=== PATIENT | male | born 1945 ===

== ENCOUNTER 2021-02-18 12:22 | Outpatient (CLI) | payer MEDICARE, OTHER, SELFPAY ==
--- NOTE | 2021-02-18 12:15 | RT.EKG_ITS ---
APPROVED REPORT Exam: Resting ECG Reason for Exam: afib Patient Location: O HR:111 bpm ECG Measurements Heart Rate 111 AXIS NJ [id number] P [id number] QRSd 123 QRS 29 QT 347 T 216 QTc 472 Conclusion Atrial fibrillation...? atrial activity Ventricular tachycardia, unsustained...sequence of 3 or more V complexes Left bundle branch block...QRSd>120, broad/notched R
== END 2021-02-18 12:23 | disposition home or self-care (01) ==
LOC: DI.CARD 12:23
PROVIDERS: Visit Provider Internal Medicine Cardiovascular Disease
DX: I42.9 Cardiomyopathy, unspecified (principal); I48.20 Chronic atrial fibrillation, unspecified
CPT/HCPCS: 93010

== ENCOUNTER → 2021-02-18 12:35 | Outpatient (BNVA) | payer MEDICARE, OTHER, SELFPAY | PROVIDERS: PCP Nurse Practitioner Family; Visit Provider Internal Medicine Cardiovascular Disease | DX: I42.9 Cardiomyopathy, unspecified (principal); I48.20 Chronic atrial fibrillation, unspecified | CPT/HCPCS: 99214 ==

== ENCOUNTER 2021-11-18 09:23 | Outpatient (CLI) | payer MEDICARE, OTHER, SELFPAY ==
--- NOTE | 2021-11-18 09:15 | RT.EKG_ITS ---
APPROVED REPORT Exam: Resting ECG Reason for Exam: afib Patient Location: O HR:79 bpm ECG Measurements Heart Rate 79 AXIS IA [id number] P [id number] QRSd 119 QRS 30 QT 359 T 209 QTc 412 Conclusion Atrial fibrillation...V-rate 86- 87, irreg A-activity Nonspecific intraventricular conduction delay...QRSd >115mS, not LBBB/RBBB Diffuse nondiagnostic ST-T abnormalities
== END 2021-11-18 09:24 | disposition home or self-care (01) ==
LOC: DI.CARD 09:24
PROVIDERS: PCP Nurse Practitioner Family; Visit Provider Internal Medicine Cardiovascular Disease
DX: I42.9 Cardiomyopathy, unspecified (principal); I48.20 Chronic atrial fibrillation, unspecified; R94.31 Abnormal electrocardiogram [ECG] [EKG]
CPT/HCPCS: 93010

== ENCOUNTER → 2021-11-18 10:53 | Outpatient (BNVA) | payer MEDICARE, OTHER, SELFPAY | PROVIDERS: PCP Nurse Practitioner Family; Referring Provider Nurse Practitioner Family; Visit Provider Internal Medicine Cardiovascular Disease | DX: I42.8 Other cardiomyopathies (principal); I48.20 Chronic atrial fibrillation, unspecified | CPT/HCPCS: 93005; 99214 ==

== ENCOUNTER → 2022-08-18 09:53 | Outpatient (BNVA) | payer MEDICARE, OTHER, SELFPAY | PROVIDERS: PCP Nurse Practitioner Family; Referring Provider Nurse Practitioner Family; Visit Provider Internal Medicine Cardiovascular Disease | DX: I42.9 Cardiomyopathy, unspecified (principal) | CPT/HCPCS: 99213 ==